=== PATIENT | female | born 1975 | race African-American/Black ===

== ENCOUNTER → 2017-11-30 13:30 | Outpatient (CLI) | payer MEDICAID | END | disposition home or self-care (01) | LOC: D.RAD 13:30 | DX: M81.0 Age-related osteoporosis without current pathological fracture (principal); J98.4 Other disorders of lung; M54.6 Pain in thoracic spine ==

== ENCOUNTER → 2019-02-04 09:09 | Outpatient (CLI) | payer MEDICAID | END | disposition home or self-care (01) | LOC: D.RAD 09:09 | PROVIDERS: ATTEND Pain Medicine Interventional Pain Medicine | DX: M25.561 Pain in right knee (principal) ==